=== PATIENT | male | born 2000 | race Caucasian/White ===

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

== ENCOUNTER 2019-03-30 01:47 | Emergency (ER) | payer SELFPAY ==
[2019-03-30 01:48] VITALS: BP 143/88; PULSE 106; RESP 16; TEMP 37.3; O2SAT 96; BMI 33.6
[2019-03-30] MEDS: dexAMETHasone 4 MG Tablet 8 MG PO (02:28)
--- NOTE | 2019-03-30 03:00 | ED.VIS.URI ---
History of Present Illness Chief Complaint: Sore Throat Informant: Patient Onset: Weeks - 2 Context: Gradual Onset Timing: Continuous Quality: sore Location: entire throat Current Severity: Moderate Maximum Severity: Moderate Worsened by: Swallowing Associated Symptoms: Vomiting - only due to gagging, Shortness of Breath - occ due to swelling in throat; not now. Negative for: Nasal Congestion, Headache, Nausea, Diarrhea, Chest Pain, Nonproductive cough, Hemoptysis, Productive Cough Narrative: Patient states this happens every several months for years. His throat gets swollen, he gags and sometimes has trouble breathing, he has been evaluated for strep several times for it and often is negative. No recent fevers or cough or neck soreness or other symptoms. Prior similar symptoms: Yes Past Medical History - Allergies and Home Meds Allergies/Adverse Reactions: Allergies No Known Allergies Allergy (Verified 08/25/18 00:29) Primary Care Physician: Domingo Etienne MD [STAFF PHYSICIAN] - (call for appt) Yvonne Peoples MD [Primary Care Provider] - Past Medical History: None Smoking Status: Current every day smoker Review of Systems General: Denies: Chills, Fever, Sweats Eyes: Denies: Visual changes - bilaterally, Diplopia ENT: Reports: Sore throat. Denies: Rhinorrhea Cardiovascular: Denies: Chest pain, Palpitations Respiratory: Reports: Dyspnea - at times. see HPI.. Denies: Cough, Dyspnea on exertion Gastrointestinal: Reports: Vomiting - due to gagging. Denies: Abdominal pain, Nausea, Diarrhea, Melena, Hematochezia Genitourinary: Denies: Dysuria, Hematuria, Frequency Musculoskeletal: Denies: Back pain, Swelling, Extremity Pain Skin: Denies: Rash, Wounds Neurological: Denies: Headache, Weakness, Numbness Physical Exam Vital Signs/Narrative: Vital Signs Temp Pulse Resp BP Pulse Ox 03/30/19 01:48 99.1 F 106 H 16 143/88 H 96 Inital Vital Signs reviewed: Yes General: Well nourished, Well developed Head: Normocephalic, Atraumatic Eyes: Perrl, EOMI Nose: Normal Inspection, No Rhinorrhea Mouth/Throat: Normal Inspection, Posterior Oropharyngeal Erythema - diffusely Tonsils: Right Tonsilar Swelling, Left Tonsilar Swelling, - - Tonsils and adenoids are prominent bilaterally, symmetrically, no uvulitis. Without tongue blade, patient gags just with opening his mouth.. Negative for: Right Tonsilar Exudates, Left Tonsilar Exudates Neck: Supple, Nontender, No Lymphadenopathy, No Meningismus Respiratory: No distress, CTA bilaterally, Chest nontender Abdomen: Soft, Nontender, Nondistended, Normal bowel sounds Skin: Normal color, No rash, No Trauma Neurological: Alert, Oriented x3, Cranial nerves II-XII grossly intact, Normal Strength, Normal Sensation Psychological: Normal affect, Normal Mood Diagnostic/Tx/Re-eval - Medical Decision Making Rapid strep is positive. It is certainly possible that he is chronically colonized and does not have acute strep throat, but I think it would be reasonable to treat him with antibiotics and Decadron anyway. I am referring him to otolaryngology, his tonsils look very prominent and he appears to have prominent adenoids posterior to that, and he may be a candidate for tonsillectomy given the frequency of which he gets these symptoms, regardless if it is due to strep throat or not. He is amenable to this overall plan. ED Disposition - Plan for ED Patient: Disposition: Home or Assisted Living Diagnosis: Streptococcal pharyngitis Instructions: PHARYNGITIS, Strep (Confirmed) Prescriptions: Amoxicillin 500 mg PO TID #30 tab Prescription Printed Referrals: Yvonne Peoples MD [Primary Care Provider] - Domingo Etienne MD [STAFF PHYSICIAN] - (call for appt)
[2019-03-30] MEDS: AMOXICILLIN 500 MG CAPSULE PO (03:04)
[2019-03-30 03:07] VITALS: RESP 16
== END 2019-03-30 03:11 | disposition home or self-care (01) ==
PROVIDERS: Emergency Provider Emergency Medicine; Family Provider Pediatrics; PCP Pediatrics
DX: J02.0 Streptococcal pharyngitis (principal); F17.200 Nicotine dependence, unspecified, uncomplicated
CPT/HCPCS: 87880; 99282

== ENCOUNTER → 2020-03-16 | Outpatient (CLI) | payer SELFPAY | END | disposition home or self-care (01) | LOC: LABSPEC 17:54 | PROVIDERS: PCP Pediatrics; Referring Provider Pediatrics; Visit Provider Pediatrics | DX: Z20.828 Contact with and (suspected) exposure to other viral communicable diseases (principal) | CPT/HCPCS: 87635; 94799; U0003 ==

== ENCOUNTER 2020-09-25 18:46 | Emergency (ER) | payer SELFPAY ==
[2020-09-25 18:47] VITALS: BP 146/89; PULSE 71; RESP 18; TEMP 36.4; O2SAT 98; BMI 35.9
--- NOTE | 2020-09-25 20:12 | ED.DCSUM_ITS ---
History of Present Illness Chief Complaint: Shortness of Breath Detail of Chief Complaint: Left upper quadrant abdominal pain Informant: Patient Current Severity: Mild Maximum Severity: Moderate Narrative: Patient presents with several week history of left upper quadrant abdominal pain. He states he was initially seen at [facility] for chest pain a month ago. He had an EKG and chest x-ray that was unremarkable. He states that pain went away but he then developed left upper quad abdominal pain just a few days later. He went back to [facility] and states that he refused an IV but was given a shot of something that helped take the pain away for a week. Family with patient at bedside voices that they never even got a CT scan at that time. On review of records from [place] it appears the patient was offered a CT scan but refused because he was uninsured. Patient presents here stating that he continues to have left upper quadrant abdominal pain for the past several weeks. He reports vomiting and diarrhea. No fever or chills. No cough or shortness of breath. Past Medical History - Allergies and Home Meds Allergies/Adverse Reactions: Allergies No Known Allergies Allergy (Verified 09/25/20 18:49) Primary Care Physician: Emery Fallon MD [STAFF PHYSICIAN] - Past Medical History: None Smoking Status: Current every day smoker Review of Systems General: Denies: Chills, Fever Eyes: Denies: Visual changes - bilaterally ENT: Denies: Bilateral ear pain Cardiovascular: Denies: Chest pain Respiratory: Denies: Dyspnea, Cough Gastrointestinal: Reports: Abdominal pain, Nausea, Vomiting, Diarrhea Musculoskeletal: Denies: Swelling, Extremity Pain Skin: Denies: Rash Hematologic: Denies: Easy bruising, Easy bleeding Allergy: Denies: Uticaria Physical Exam Vital Signs/Narrative: Vital Signs Temp Pulse Resp BP Pulse Ox 09/25/20 18:47 97.5 F L 71 18 146/89 H 98 Inital Vital Signs reviewed: Yes General: Well nourished, Well developed Head: Normocephalic ENT: Moist mucous membranes Neck: Supple Cardiovascular: Regular rate, Regular rhythm Respiratory: No distress, CTA bilaterally Abdomen: Soft, Tender - Mild left upper quadrant tenderness to palpation., Hypoactive bowel sounds. Negative for: Guarding, Rebound tenderness Extremities: Nontender Skin: Normal color Neurological: Alert, Oriented x3 Psychological: Normal affect Diagnostic/Tx/Re-eval Impressions Abdomen/Pelvis CT 09/25/20 21:58 IMPRESSION: No acute intra-abdominal or pelvic disease. Individualized dose optimization techniques were used for this CT. at 2221 Reported and signed by: Sunil Dawson MD Electronically Signed: Sunil Dawson MD at 22:20 EST Tel , Service support , 09/25/20 21:58 Abdomen/Pelvis WITH Contrast [CT] Stat Laboratory Results 09/25/20 09/25/20 20:20 20:20 WBC 9.2 RBC 5.14 Hgb 15.0 Hct 45.5 MCV 88.5 MCH 29.2 MCHC 33.0 RDW Std Deviation 42.1 RDW Coeff of Trudy 13.0 Plt Count 293 MPV 9.9 Immature Gran % (Auto) 0.500 Neut % (Auto) 55.3 Lymph % (Auto) 29.9 [place] % (Auto) 10.6 H Eos % (Auto) 3.4 Baso % (Auto) 0.3 Absolute Neuts (auto) 5.1 Absolute Lymphs (auto) 2.74 Nucleated RBC % 0 Sodium 139 Potassium 4.0 Chloride 108 H Carbon Dioxide 26.0 Anion Gap 5 BUN 11 Creatinine 0.98 Estim Creat Clear Calc 131.97 Est GFR (MDRD) Af Amer 124 Est GFR (MDRD) Non-Af 102 BUN/Creatinine Ratio 11.2 Glucose 95 Calcium 8.9 Total Bilirubin 0.40 Direct Bilirubin 0.07 AST 11 L ALT 27 Alkaline Phosphatase 49 Total Protein 7.1 Albumin 3.8 Globulin 3.3 Lipase 113 - Medical Decision Making Patient was given Zofran and Bentyl here states that not significantly help his pain. Blood work is unremarkable. CT scan is normal. Test results are discussed with the patient. I did advise him the next of would be to follow-up with surgery for possible EGD to ensure he does not have any stomach ulcers or gastritis. Patient does state that his pain started after he had been drinking quite a bit of alcohol. He also drinks a lot of caffeine and carbonated beverages. I will start the patient on Prilosec and refer him to surgery for follow-up as needed. ED Disposition - Plan for ED Patient: Disposition: Home or Assisted Living Diagnosis: Abdominal pain Instructions: ED Unknown Causes of Abdominal ... Prescriptions: Omeprazole [Prilosec] 20 mg PO DAILY #30 cap Transmission Status: Pending to [facility] Referrals: Emery Fallon MD [STAFF PHYSICIAN] - Micah Orozco MD [STAFF PHYSICIAN] - As Needed
[2020-09-25] MEDS: Dicyclomine 10 MG Capsule 20 MG PO (20:23)
[2020-09-25] MEDS: Ondansetron 4 MG/2 ML Vial IV (20:23)
[2020-09-25 20:30] LABS: Absolute Lymphocyte Count 2.74 X10^3/uL (0.83-4.51); Absolute Neutrophil Count 5.1 X10^3/uL (2.0-7.7); Basophil# 0.03 X10^3/uL; Basophil% 0.3 % (0-1); Eosinophil# 0.31 X10^3/uL; Eosinophils% 3.4 % (0-5); Hematocrit 45.5 % (40-54); Lymphocyte # 2.74 X10^3/ul (4.0); Lymphocyte % 29.9 % (19-41); Mean Corpuscular Hgb 29.2 pg (27.0-32.0); Mean Corpuscular Volume 88.5 fL (80-94); Mean Platelet Vol. 9.9 fl (6.2-12.0); Monocyte# 0.97 X10^3/uL; Monocyte% 10.6 % (0-10); NRBC Flagged by Analyzer 0 % (0-5); Neutrophil # 5.07 X10^3/uL (2.7-7.7); Neutrophil % 55.3 % (47-70); Platelet Count 293 K/mm3 (150-450); RBC Distribution Width SD 42.1 fl (35.1-43.9); Red Blood Count 5.14 M/mm3 (4.6-6.2); White Blood Count 9.2 K/mm3 (4.4-11.0)
[2020-09-25 20:42] LABS: AST(SGOT) 11 U/L (15-37); Alanine Aminotransfer ALT/SGPT 27 U/L (16-61); Albumin, Serum 3.8 g/dL (3.2-5.0); Alkaline Phosphatase 49 U/L (45-117); Anion Gap 5 (5-15); BUN 11 mg/dL (7-18); BUN/Creat Ratio 11.2 RATIO (10-20); Bilirubin, Direct 0.07 mg/dL (0.00-0.30); Calcium,Total 8.9 mg/dL (8.5-10.1); Chloride 108 mmol/L (98-107); Creatinine, Serum 0.98 mg/dL (0.70-1.30); EST Glomerular Filtration Rate 102 mL/min (>60); Est Glom Filt Rate - Afr Amer 124 mL/min (>60); Estimated Creatinine Clearance 131.97 ml/min; Globulin 3.3 g/dL (2.2-4.2); Glucose 95 mg/dL (74-106); Lipase 113 U/L (73-393); Protein, Total 7.1 g/dL (6.4-8.2); Sodium Level 139 mmol/L (136-145)
[2020-09-25 20:46] VITALS: RESP 16
--- NOTE | 2020-09-25 21:58 | CT_ITS ---
HISTORY: LEFT UPPER ABD/LOWER CP CAUSING SOB. TECHNIQUE: Helically acquired images were obtained of the abdomen and pelvis following the intravenous administration of 100 ML of Isovue-370 Iodinated contrast. 2D reformats. Gastrografin oral contrast was administered. A radiation dose optimization technique was used for this scan. COMPARISON: X-rays of the right hip from May 19, 2014 FINDINGS: # of images incl. paperwork: 472 LUNG BASES: Clear. CT abdomen: Minimal chronic degenerative wedging to the heavily lumbarized L5 segment. Cortical decompression and fixation screws across both femoral necks. One of these was present within the right femoral neck on May 19, 2014. The gallbladder is decompressed. Liver, spleen, pancreas, and adrenal glands, are normal. The kidneys are normal. The aorta is normal. CT pelvis: No ascites is present. The appendix is normal. Series 263. The prostate gland is not enlarged. The bladder is normal. Bowel-gas pattern is normal. CT/Abdomen/Pelvis WITH Contrast IMPRESSION: No acute intra-abdominal or pelvic disease. Individualized dose optimization techniques were used for this CT. at 2221 Reported and signed by: Sunil Dawson MD Electronically Signed: Sunil Dawson MD at 22:20 EST Tel , Service support ,
== END 2020-09-25 22:42 | disposition home or self-care (01) ==
PROVIDERS: Emergency Provider Emergency Medicine
DX: R10.12 Left upper quadrant pain (principal); F17.200 Nicotine dependence, unspecified, uncomplicated
CPT/HCPCS: 74177; 80048; 80076; 83690; 85025; 96374; 99284; J7030; Q9967; A4216; J2405

== ENCOUNTER 2021-08-09 09:01 | Emergency (ER) | payer SELFPAY ==
[2021-08-09 09:02] VITALS: BP 144/84; PULSE 96; RESP 18; TEMP 36.6; O2SAT 99; BMI 38.0
[2021-08-09 09:14] VITALS: O2SAT 97
--- NOTE | 2021-08-09 09:14 | EKG12_ITS ---
Test Reason : CP Blood Pressure : / mmHG Vent. Rate : 087 BPM Atrial Rate : 087 BPM P-R Int : 162 ms QRS Dur : 090 ms QT Int : 342 ms P-R-T Axes : 065 074 051 degrees QTc Int : 411 ms Normal sinus rhythm Normal ECG Confirmed by OLINDA AYALA, TATYANA ([id number]), editor book MINDA GRANT ([id number]) on 08/11/2021 9:38:18 AM Referred By: RASHI/KATE Confirmed By:TATYANA PRAKASH MD
--- NOTE | 2021-08-09 09:19 | ED.VIS.CHEST ---
HPI History of Present Illness Chief Complaint: Chest Pain Narrative Narrative: Patient presenting for evaluation secondary chest pain. Patient reports over the course last week he has had a continuous sharp central chest pain. He reports that it is worse with movement palpation and with taking a deep breath. Denies any exertional component with it. Patient states that over the course of the last 24 hours he is to also develop back pain. Denies any shortness of breath, does report that he smokes heavily and occasionally has had hemoptysis but denies any other DVT or PE risk factors. Patient denies any cardiovascular risk factors. He has not been ill recently such as fever cough nausea vomiting or diarrhea. View of systems otherwise negative PFSH PFSH Medical History no medical history Home Medications NK 08/09/21 [History Last Taken Unknown] Allergy/AdvReac Type Severity Reaction Status Date / Time No Known Allergies Allergy Verified 08/09/21 09:10 Social History Smoking Status: Current every day smoker tobacco type: cigarettes ROS ROS ED Constitutional Constitutional ED: Denies fever(s) Eyes Eyes: Denies change in vision ENT ENT ED: Denies rhinorrhea or sore throat Cardiovascular Cardiovascular: Reports as per HPI Respiratory/Chest Respiratory/Chest: Reports other Details: Occasional hemoptysis Gastrointestinal Gastrointestinal: Denies abdominal pain, nausea or vomiting Genitourinary Genitourinary ED: Denies dysuria Musculoskeletal Musculoskeletal: Denies myalgias or neck pain Integumentary Denies rash Neurologic Neurologic: Denies headache(s), paresthesias or weakness Psychiatric Psychiatric: Denies depression Endocrine Endocrinology: Denies polydipsia or polyuria Hematologic/Lymphatic Hematologic/Lymphatic: Denies easy bleeding or easy bruising Allergic/Immunologic Allergic/Immunologic ED: Denies urticaria EXAM Physical Exam Const Vital Signs: 08/09/21 09:02 08/09/21 09:08 08/09/21 09:14 Temperature 97.9 F Temperature Source Temporal Pulse Rate 96 Respiratory Rate 18 Respiratory Effort Normal Non-Labored Respiratory Pattern Normal Blood Pressure 144/84 H Blood Pressure Mean 104 Pulse Ox 99 97 Oxygen Delivery Method Room Air Room Air Positive well nourished and well developed General Appearance ED: well developed and NAD HEENT Reports moist mucous membranes normocephalic and atraumatic Eyes EOMs intact bilaterally Neck no lymphadenopathy, supple and no JVD Chest Wall inspection of chest normal Chest Narrative: No evidence of vesicular rash Chest: tenderness sternum Resp normal respiratory effort and clear to auscultation bilaterally Auscultation: Negative for rales, rhonchi or wheezes Cardio regular rate, regular rhythm, S1 normal heart sound, S2 normal heart sound and no murmurs Peripheral Pulses: radial pulses present and posterior tibial pulses present GI normal to inspection, nondistended, normoactive bowel sounds, soft to palpation and non-tender Extremity normal to inspection Extremity Narrative: Calves are supple no palpable cord General Extremety ED: Negative for edema or tenderness General Extremity: Negative for edema Neuro oriented x3 and no sensory deficits noted Sensorium / Orientation: awake and alert Motor Exam: strength abnormal Psych mental status grossly normal Skin no rashes or lesions noted MDM MDM MDM Narrative Medical decision making narrative: Patient presented secondary to chest pain. He did report hemoptysis and a pleuritic component work-up was obtained including D-dimer. CBC chemistry high-sensitivity troponin and D-dimer were noted to be negative. Chest x-ray by my personal review as well as radiology is noted to be negative. EKG was unremarkable. Patient at this point has low risk chest pain, potentially there is an element of some pleurisy. Patient was recommended to use NSAIDs. He was recommended to stop smoking. Patient was discharged in stable condition. Lab Data Labs: Laboratory Results - last 24 hr 08/09/21 08/09/21 08/09/21 09:10 09:10 09:10 WBC 8.4 RBC 5.32 Hgb 15.2 Hct 46.4 MCV 87.2 MCH 28.6 MCHC 32.8 RDW Std Deviation 39.3 RDW Coeff of Trudy 12.3 Plt Count 289 MPV 9.5 Immature Gran % (Auto) 0.500 Neut % (Auto) 60.4 Lymph % (Auto) 25.8 [place] % (Auto) 8.5 Eos % (Auto) 4.4 Baso % (Auto) 0.4 Absolute Neuts (auto) 5.1 Absolute Lymphs (auto) 2.17 Nucleated RBC % 0 D-Dimer Quant (PE/DVT) < 0.27 L Sodium 140 Potassium 4.2 Chloride 105 Carbon Dioxide 26.0 Anion Gap 9 BUN 17 Creatinine 0.97 Estim Creat Clear Calc 132.22 Est GFR (MDRD) Af Amer 125 Est GFR (MDRD) Non-Af 103 BUN/Creatinine Ratio 17.5 Glucose 104 Calcium 9.7 Troponin I High Sens 4 Radiography Diagnostic Testing: Clinical Impression(s) from Imaging Studies Chest X-Ray 08/09/21 09:48 IMPRESSION: Normal x-ray examination of the chest. Electronically Signed: Elijah Radford MD at 10:03 EST Tel , Service support , EKG Initial EKG: Attestation: I personally reviewed and interpreted this EKG as follows: (Sinus rhythm [address] segments normal T waves normal MI and QTc intervals no evidence acute ischemia or arrhythmia) Discharge Plan Triage Chief Complaint: Chest Pain ED Provider: Evelio Alvarez Dx/Rx/DC Orders Clinical Impression: Chest pain Instructions: ED Pleurisy Prescriptions: No Action NK RF: 0 Primary Care Provider: Care Physician,No Primary Referrals: Keyona Duran [NON-STAFF] - Care Physician,No Primary [Primary Care Provider] - Disposition Disposition: Home, Self Care
[2021-08-09 09:23] LABS: Absolute Lymphocyte Count 2.17 X10^3/uL (0.83-4.51); Absolute Neutrophil Count 5.1 X10^3/uL (2.0-7.7); Basophil# 0.03 X10^3/uL; Basophil% 0.4 % (0-1); Eosinophil# 0.37 X10^3/uL; Eosinophils% 4.4 % (0-5); Hematocrit 46.4 % (40-54); Hemoglobin 15.2 g/dL (13.0-16.5); Lymphocyte # 2.17 X10^3/ul (0.83-4.51); Lymphocyte % 25.8 % (19-41); Mean Corp Hgb Conc 32.8 g/dL (32-36); Mean Corpuscular Hgb 28.6 pg (27.0-32.0); Mean Corpuscular Volume 87.2 fL (80-94); Mean Platelet Vol. 9.5 fl (6.2-12.0); Monocyte# 0.71 X10^3/uL; Monocyte% 8.5 % (0-10); NRBC Flagged by Analyzer 0 % (0-5); Neutrophil # 5.08 X10^3/uL (2.7-7.7); Neutrophil % 60.4 % (47-70); Platelet Count 289 K/mm3 (150-450); RBC Distribution Width CV 12.3 % (11.6-14.6); RBC Distribution Width SD 39.3 fl (35.1-43.9); Red Blood Count 5.32 M/mm3 (4.6-6.2); White Blood Count 8.4 K/mm3 (4.4-11.0)
[2021-08-09] MEDS: Aspirin 81 MG TAB.CHEW 324 MG PO (09:24)
[2021-08-09 09:39] LABS: D-Dimer Quantitative (DVT/PE) < 0.27 FEU/ug/m (0.27-0.49)
[2021-08-09 09:40] LABS: Anion Gap 9 (5-15); BUN 17 mg/dL (7-18); BUN/Creat Ratio 17.5 RATIO (10-20); Calcium,Total 9.7 mg/dL (8.5-10.1); Chloride 105 mmol/L (98-107); Creatinine, Serum 0.97 mg/dL (0.70-1.30); EST Glomerular Filtration Rate 103 mL/min (>60); Est Glom Filt Rate - Afr Amer 125 mL/min (>60); Estimated Creatinine Clearance 132.22 ml/min; Glucose 104 mg/dL (74-106); Potassium 4.2 mmol/L (3.5-5.1); Sodium Level 140 mmol/L (136-145); Troponin-I HS 4 pg/mL (3.0-78.0)
--- NOTE | 2021-08-09 09:48 | RAD_ITS ---
STUDY: X-RAY CHEST REASON FOR EXAM: Male, 20 years old. chest pain TECHNIQUE: PA and lateral views of the chest. COMPARISON: None. FINDINGS: The lungs are clear and expanded. There is no demonstrated pleural abnormality. Normal size heart. Normal mediastinum and akhil. Normal visualized pulmonary arteries. Normal visualized aortic arch and descending thoracic aorta. Normal visualized thoracic spine. Normal visualized ribs, clavicles, and shoulders. There is no demonstrated abnormality of the visualized soft tissue structures of the upper abdomen. RAD/Chest PA and Lateral IMPRESSION: Normal x-ray examination of the chest. Electronically Signed: Elijah Radford MD at 10:03 EST Tel , Service support ,
[2021-08-09 10:39] VITALS: PULSE 59; RESP 17; O2SAT 99
== END 2021-08-09 10:40 | disposition home or self-care (01) ==
PROVIDERS: Emergency Provider Emergency Medicine
DX: R07.9 Chest pain, unspecified (principal); F17.210 Nicotine dependence, cigarettes, uncomplicated
CPT/HCPCS: 71046; 80048; 84484; 85025; 85379; 93005; 99285

== ENCOUNTER 2021-08-16 11:05 | Emergency (ER) | payer SELFPAY ==
[2021-08-16 11:06] VITALS: BP 143/75; PULSE 101; RESP 18; TEMP 35.9; O2SAT 95; BMI 38.6
[2021-08-16 11:15] VITALS: BP 131/71; PULSE 97; RESP 14; O2SAT 97
--- NOTE | 2021-08-16 11:26 | EKG12_ITS ---
Test Reason : CP Blood Pressure : / mmHG Vent. Rate : 097 BPM Atrial Rate : 097 BPM P-R Int : 154 ms QRS Dur : 086 ms QT Int : 318 ms P-R-T Axes : 058 072 043 degrees QTc Int : 403 ms Normal sinus rhythm Normal ECG Confirmed by REG AYALA, LORE ([id number]), brands editor LILIA GLEZ ([id number]) on 08/19/2021 9:07:18 AM Referred By: Confirmed By:LORE FINNEY MD
--- NOTE | 2021-08-16 11:27 | CT_ITS ---
STUDY: CTA CHEST REASON FOR EXAM: Male, 20 years old. left chest pain RADIATION DOSAGE (If Supplied By Facility): CTDIvol = ( 9.23 ) mGy, DLP = ( 530.75 ) mGycm TECHNIQUE: The examination was performed with the intravenous administration of IV 100mL Isovue-370. Post-processing of the angiographic images was performed, with multiplanar reformation and 3D reconstruction. Individualized dose optimization techniques were used for this CT. COMPARISON: None. FINDINGS: Normal enhancement of the main pulmonary artery and right and left pulmonary arteries. Normal enhancement of the bilateral peripheral pulmonary arteries. There is no demonstrated pulmonary embolism. Normal thoracic aorta and visualized great vessels. There is no demonstrated aortic dissection. Normal heart and pericardium. Normal mediastinum. Normal hilar regions. Normal visualized trachea and bronchi. The lungs are well expanded. Normal pulmonary parenchyma. Normal pleura. Normal chest wall structures. Normal osseous structures. Normal visualized upper abdomen. CT/CTA Chest W/WO Contrast IMPRESSION: Normal CTA chest examination, without a demonstrated pulmonary embolism or arterial dissection. Electronically Signed: Abraham Nugent MD ([place]) at 12:33 EST , Service support ,
--- NOTE | 2021-08-16 11:29 | ED.VIS.CHEST ---
HPI History of Present Illness Chief Complaint: Chest Pain Informant: patient Narrative Narrative: Patient presents with left-sided chest pain still. He states this is been an issue off and on for a year or more. He was just seen about 6 days ago. He had extensive evaluation including troponin and D-dimer. He states the pain is there all the time. He may have some anxiety but does not think this causes the pain. He has no cough. No hemoptysis. No leg pain or swelling. He has family history of high blood pressure but no DVT or PE. He denies recent travel, surgery, immobilization or personal history of DVT or PE. He has had this evaluated but does not recall ever having a CAT scan of his chest. This was not done last week, but he has longstanding symptoms, and a negative D-dimer. PFSH PFSH Home Medications NK 08/09/21 [History Last Taken Unknown] Allergy/AdvReac Type Severity Reaction Status Date / Time No Known Allergies Allergy Verified 08/16/21 11:07 Social History Smoking Status: Current every day smoker tobacco type: cigarettes ROS ROS ED Constitutional Constitutional ED: Denies chills or fever(s) Eyes Eyes: Denies blurry vision ENT ENT ED: Denies rhinorrhea or sore throat Cardiovascular Cardiovascular: Reports as per HPI and chest pain Respiratory/Chest Respiratory/Chest: Denies dyspnea Gastrointestinal Gastrointestinal: Denies nausea or vomiting Genitourinary Genitourinary ED: Denies dysuria Musculoskeletal Musculoskeletal: Denies arthralgias, back pain, myalgias or neck pain Integumentary Denies rash Neurologic Neurologic: Denies headache(s) Psychiatric Psychiatric: Reports anxiety Endocrine Endocrinology: Denies polydipsia or polyuria Hematologic/Lymphatic Hematologic/Lymphatic: Denies easy bleeding or easy bruising Allergic/Immunologic Allergic/Immunologic ED: Denies mouth swelling or urticaria EXAM Physical Exam Const Vital Signs: 08/16/21 11:06 08/16/21 11:15 08/16/21 12:35 Temperature 96.7 F L Temperature Source Temporal Pulse Rate 101 H 97 88 Respiratory Rate 18 14 16 Blood Pressure 143/75 H 131/71 H 144/119 H Blood Pressure Mean 97 91 127 Pulse Ox 95 97 97 Oxygen Delivery Method Room Air Room Air Room Air 08/16/21 13:04 Temperature Temperature Source Pulse Rate 104 H Respiratory Rate 18 Blood Pressure 137/80 H Blood Pressure Mean 99 Pulse Ox 98 Oxygen Delivery Method Room Air Positive well nourished and well developed General Appearance ED: well developed HEENT Reports moist mucous membranes Eyes General Eye ED: Negative for pale conjunctiva or scleral icterus Neck no JVD Chest Wall inspection of chest normal Chest: tenderness Resp normal respiratory effort and clear to auscultation bilaterally Effort and Inspection: respiratory distress Auscultation: Negative for rales, rhonchi or wheezes Cardio regular rate and regular rhythm GI normal to inspection, nondistended, normoactive bowel sounds, soft to palpation and non-tender Back/Spine no CVA tenderness Extremity normal to inspection General Extremety ED: Negative for edema, pulses abnormal or tenderness General Extremity: Negative for edema or pulses abnormal Neuro Sensorium / Orientation: awake and alert Psych mental status grossly normal Skin no rashes or lesions noted MDM MDM MDM Narrative Medical decision making narrative: Patient's blood work shows normal CBC. Electrolytes are essentially normal. Minimal elevation of glucose. Troponin is negative. CTA of the chest shows no acute process. I discussed with the patient that he has had the symptoms somewhere 1 to 3 years. They almost never go away. I do not know for can be able to sort out the cause of this through the emergency department. He should follow up with a private physician. I will refer him to somebody as he has not followed up in the past. We did discuss reasons that would prompt repeat evaluation. Lab Data Attestation: I reviewed the patient's lab results. Labs: Laboratory Results - last 24 hr 08/16/21 08/16/21 11:52 11:52 WBC 8.2 RBC 5.01 Hgb 14.5 Hct 43.2 MCV 86.2 MCH 28.9 MCHC 33.6 RDW Std Deviation 38.7 RDW Coeff of Trudy 12.3 Plt Count 246 MPV 9.4 Immature Gran % (Auto) 1.900 H Neut % (Auto) 86.9 H Lymph % (Auto) 5.1 L [place] % (Auto) 5.0 Eos % (Auto) 0.6 Baso % (Auto) 0.5 Absolute Neuts (auto) 7.1 Absolute Lymphs (auto) 0.42 L Nucleated RBC % 0 Differential Comment Platelet Estimate ADEQUATE RBC Morphology NORM C+C Sodium 135 L Potassium 4.5 Chloride 103 Carbon Dioxide 27.0 Anion Gap 5 BUN 15 Creatinine 0.90 Estim Creat Clear Calc 142.51 Est GFR (MDRD) Af Amer 135 Est GFR (MDRD) Non-Af 112 BUN/Creatinine Ratio 16.6 Glucose 117 H Calcium 9.5 Troponin I High Sens 4 Radiography Diagnostic Testing: Clinical Impression(s) from Imaging Studies Chest CTA 08/16/21 11:27 IMPRESSION: Normal CTA chest examination, without a demonstrated pulmonary embolism or arterial dissection. Electronically Signed: Abraham Nugent MD ([place]) at 12:33 EST , Service support , EKG Initial EKG: Comments: EKG done for chest pain read by me showed sinus rhythm with overall rate of 97. No acute ST elevation or depression. VA interval, QRS duration and QTc are normal. Discharge Plan Triage Chief Complaint: Chest Pain ED Provider: Az Anderson Dx/Rx/DC Orders Clinical Impression: Chest pain Instructions: ED Chest Pain, Uncertain Cause Prescriptions: No Action NK RF: 0 Primary Care Provider: Care Physician,No Primary Referrals: Katarina Lucio MD [STAFF PHYSICIAN] - As soon as possible Care Physician,No Primary [Primary Care Provider] - Disposition Disposition: Home, Self Care
[2021-08-16] MEDS: Ketorolac 15 MG/ML Vial IV (11:57)
[2021-08-16] MEDS: 0.9% Normal Saline 1,000 ML 250 ML IV (11:58)
[2021-08-16 12:01] LABS: Absolute Lymphocyte Count 0.42 X10^3/uL (0.83-4.51); Absolute Neutrophil Count 7.1 X10^3/uL (2.0-7.7); Basophil# 0.04 X10^3/uL; Basophil% 0.5 % (0-1); Eosinophil# 0.05 X10^3/uL; Eosinophils% 0.6 % (0-5); Hematocrit 43.2 % (40-54); Hemoglobin 14.5 g/dL (13.0-16.5); Lymphocyte # 0.42 X10^3/ul (0.83-4.51); Lymphocyte % 5.1 % (19-41); Mean Corp Hgb Conc 33.6 g/dL (32-36); Mean Corpuscular Hgb 28.9 pg (27.0-32.0); Mean Corpuscular Volume 86.2 fL (80-94); Mean Platelet Vol. 9.4 fl (6.2-12.0); Monocyte# 0.41 X10^3/uL; NRBC Flagged by Analyzer 0 % (0-5); Neutrophil # 7.14 X10^3/uL (2.7-7.7); Neutrophil % 86.9 % (47-70); POSITIVE DIFFERENTIAL YES; Platelet Count 246 K/mm3 (150-450); RBC Distribution Width CV 12.3 % (11.6-14.6); RBC Distribution Width SD 38.7 fl (35.1-43.9); Red Blood Count 5.01 M/mm3 (4.6-6.2); White Blood Count 8.2 K/mm3 (4.4-11.0)
[2021-08-16 12:29] LABS: Differential Indicated SCAN CRITERIA MET
[2021-08-16 12:30] LABS: Anion Gap 5 (5-15); BUN 15 mg/dL (7-18); BUN/Creat Ratio 16.6 RATIO (10-20); Calcium,Total 9.5 mg/dL (8.5-10.1); Chloride 103 mmol/L (98-107); EST Glomerular Filtration Rate 112 mL/min (>60); Est Glom Filt Rate - Afr Amer 135 mL/min (>60); Estimated Creatinine Clearance 142.51 ml/min; Glucose 117 mg/dL (74-106); Potassium 4.5 mmol/L (3.5-5.1); Sodium Level 135 mmol/L (136-145); Troponin-I HS 4 pg/mL (3.0-78.0)
[2021-08-16 12:35] VITALS: BP 144/119; PULSE 88; RESP 16; O2SAT 97
[2021-08-16 13:04] VITALS: BP 137/80; PULSE 104; RESP 18; O2SAT 98
[2021-08-16 13:07] LABS: Platelet Estimate ADEQUATE (ADEQ); Red Cell Morphology NORM C+C NORMAL (NORM C&C)
[2021-08-16 14:06] VITALS: BP 123/69; PULSE 84; RESP 20; O2SAT 97
== END 2021-08-16 14:16 | disposition home or self-care (01) ==
PROVIDERS: Emergency Provider Emergency Medicine
DX: R07.9 Chest pain, unspecified (principal); F17.210 Nicotine dependence, cigarettes, uncomplicated; Z82.49 Family history of ischemic heart disease and other diseases of the circulatory system
CPT/HCPCS: 71275; 80048; 84484; 85025; 93005; 96361; 96374; 99284; J7030; J7050; Q9967; A4216